=== PATIENT | male | born 1940 | race Caucasian/White ===

== ENCOUNTER 2017-04-12 10:08 | Inpatient (IN) | payer MEDICARE, OTHER ==
[~2017-04-12 10:08] MED LIST: CEFAZOLIN 2 Gram 2 GM/50 ML BAG IVPB ONE; CELECOXIB 100 MG CAPSULE PO ONE; FAMOTIDINE 20MG TABLET PO ONE; MECLIZINE 25 MG TABLET PO ONE; METOCLOPRAMIDE 10 MG TABLET PO ONE; VANCOMYCIN HCL 1,000 MG in DEXTROSE 5 % IN WATER 250 ML IVPB ONE
[2017-04-12 11:13] LABS: ABO GROUP O; ANTIBODY SCREEN NEGATIVE (NEGATIVE); RH TYPE POSITIVE
[2017-04-12] MEDS ORDERED: MAGNESIUM HYDROXIDE 30 ML UDC PO PRN (14:58)
[2017-04-12] MEDS ORDERED: HYDROCODONE/APAP 10/325 TABLET PO PRN (14:58)
[2017-04-12] MEDS ORDERED: AL HYDROX/MAG HYDROX 30ML UD PO PRN (14:58)
[2017-04-12] MEDS ORDERED: ONDANSETRON HCL IV 4 MG/2 ML VIAL IVP PRN (14:58)
[2017-04-12] MEDS ORDERED: KETOROLAC 30 MG/ML VIAL IVP PRN ×2 (14:58)
[2017-04-12] MEDS ORDERED: NALOXONE 0.4 MG/1 ML VIAL IVP PRN (14:58)
[2017-04-12] MEDS ORDERED: BISACODYL 10 MG SUPP RC PRN (14:58)
[2017-04-12] MEDS ORDERED: HYDROMORPHONE HCL 2 MG/ML VIAL IM PRN (14:58)
[2017-04-12] MEDS ORDERED: ACETAMINOPHEN W/ CODEINE 300MG/60MG TABLET PO PRN ×2 (14:58)
[2017-04-12] MEDS ORDERED: ACETAMINOPHEN 325 MG TAB PO PRN (14:58)
[2017-04-12] MEDS ORDERED: DIPHENHYDRAMINE HCL 25 MG CAPSULE PO PRN (14:58)
[2017-04-12] MEDS ORDERED: TRAMADOL HCL 50 MG TABLET PO PRN (14:58)
[2017-04-12] MEDS ORDERED: ZOLPIDEM TARTRATE 5 MG TABLET PO PRN (14:58)
--- NOTE | 2017-04-12 16:07 | Operative Note ---
DATE OF SURGERY: 04/12/17 PREOPERATIVE DIAGNOSIS: END-STAGE ARTHROSIS OF THE LEFT HIP. POSTOPERATIVE DIAGNOSIS: END-STAGE ARTHROSIS OF THE LEFT HIP. PROCEDURE: CEMENTLESS LEFT TOTAL HIP ARTHROPLASTY USING CRUZ-NEPHEW COMPONENTS WITH A SIZE 54 NO-HOLE REFLECTION CUP, A 35 DEGREE OFFSET WITH A 32 MM DIAMETER HIGHLY CROSS-LINKED LINER WITH A SIZE 15 STANDARD OFFSET ECHELON CEMENTLESS STEM WITH A +0, 32 MM DIAMETER COBALT CHROME HEAD. STAFF SURGEON: DR. STONE ANESTHESIA: SPINAL PREPARATION: CHLORAPREP INDIVIDUAL CONSIDERATION: NONE PROCEDURE: The patient was taken to the Operating Room and placed supine on the operating room table. He had successful induction of a spinal anesthetic. He was then placed on her side, left side up, and his left leg and hip were prepped and draped in the usual fashion. The patient had direct posterior approach to the hip. Sharp dissection was carried down through the skin and subcutaneous tissues. Small veins were coagulated with a Bovie. The tensor gluteal fascia was opened along the entire length of the incision and deep retractors were placed. Short external rotators were identified, piriformis fossa and removed and this exposed the posterior capsule. The posterior capsulectomy was performed. The hip was dislocated posteriorly. He had advanced change at the head and some changes in the socket. A femoral neck cut was then made freehand with an oscillating saw, about a fingerbreadth above the lesser troch. A rim capsulectomy was then performed starting with 45 mm reamer to medialize to the medial wall. I reamed the introitus, it was a 53 for a 54 cup. I slightly had to ream to 52. After thorough irrigation, I impacted a size 54 no-hole reflection cup at 20 degrees of forward flexion and 40 degrees of abduction using the extra-articular alignment guide and bony landmarks. There was solid cementless fixation. The center cap screw was placed and the 35-degree offset, 32 mm diameter liner, was then impacted with the offset posterior and inferior. This gave an excellent stable acetabular construct and this was packed off. The proximal femur was delivered into the wound and box cutting osteotome was used to remove proximal metaphyseal bone. Mid stem reaming was done to a size 15. I just started feeling cortex at maybe 13 then a 15 looks like a good proximal fit. I broached a 15, dialed anteversion between 25-30 degrees, and the broach had solid cementless fit. Calcar reamed and then with a standard neck and head, there was excellent stability. This was removed after irrigation and a size 15 standard [place] cementless stem was impacted into place with solid calcar contact and solid cementless fixation. I again irrigated out and completely dried the [place] Taper and impacted a +0, 32 mm diameter [place] Chrome head on the [place] Taper then reduced the hip. I had full anterior stability with extension and external rotation; actually, I had full stability posteriorly and I couldn't actually dislocated it without pulling it out with a hook even. I flexed them to 90-120 degrees internally rotated maximally and he is still stable. After irrigation, hemostasis was obtained with a Bovie. The sciatic nerve was inspected and found to be completely intact. The tensor gluteal fascia was closed with a running #2 quill and just prior to closure, I did place about 30 mL of saline mixed with 1 gram of Tranexamic Acid. He did receive 1 gram of Tranexamic Acid prior to the procedure IV. I finished the fascia closure, the subcutaneous was closed with 0 quill, and the skin was closed with chris. The skin and subcutaneous tissues were infiltrated with 0.75% Marcaine with Epinephrine, 30 mL. The patient tolerated the procedure well. Needle and sponge counts were correct. Estimated blood loss was less than 250 mL and he was taken back to Recovery in good condition. There were no complications. JOB NUMBER: [id number] MTDD
[2017-04-12] MEDS ORDERED: 0.9 % SODIUM CHLORIDE 10 ML VIAL IVP ONE (16:40)
[2017-04-12] MEDS ORDERED: TRANEXAMIC ACID 1,000 MG/10 ML ML IV ONE (16:40)
--- NOTE | 2017-04-12 17:17 | Rehab Evaluation ---
Patient Information - Patient Information Diagnosis: L hip DJD Ordered Treatment: PT Evaluate and Treat Status: Initial Evaluation Surgery: Yes (THR) Date of Surgery: 04/12/17 Past Medical/Surgical Hx: PAST MEDICAL/SURGICAL HISTORY Surgery to Affected Area? No Recent Surgery? Past Surgical History fabiana inguinal hernia; RTC left;; tonsils; colonoscopy PMH - Respiratory Hx Respiratory Disorders Yes Hx Pneumonia Yes PMH - Cardiovascular Hx Cardiovascular Disorders Yes Hx Hypertension Yes Exercise Tolerance Poor Comment: hi chol PMH - Neuro Hx Neurological Disorders No PMH - GI Hx Gastrointestinal Disorders Yes Hx Gastroesophageal Reflux Yes Hx Rectal Bleeding Yes: hemmorhoids PMH - Hx Genitourinary Disorders Yes Hx Prostate Problems Yes: bph PMH - Endocrine Hx Endocrine Disorders Yes Hx Thyroid Disease Yes PMH - Musculoskeletal Hx Musculoskeletal Disorders Yes Hx Arthritis Yes: back; hands PMH - Psych Hx Psychiatric Problems No PMH - Hematology/Oncology Hx Hematology/Oncology No Disorders Premorbid Status: Detail (The patient was independent with all mobility.) Social History: Detail (The patient lives in a single story home with spouse with 1 step at the enterance without a railing. The patienthas a small standing shower on the first floor that is not acessible however the patient's has acquired a tub chair and hand held shower to allow him to take a shower in a first floor bathroom. The other bathroom with tub/shower combo is in basement with 13 concrete steps, which patient's stated is unsafe currently. The patient has a toilet riser seat and a wheeled walker, however the walker is too short. Will vend patient a taller walker.) Precautions: [place], Other (Total hip precautions, WBAT on the L LE.) - Time With Patient Total Time Spent With Patient (Min): 30 Treatment Procedures: Detail (Initial evaluation) Subjective Information - Subjective Information Per Patient (The patient had no complaints of pain, however the patient complained of lightheadness.) Objective Data - Mental Status Patient Orientation: Oriented x3 - ROM Not within normal limits (The patient's R LE AROM is WNL. The patient's L LE hip AROM is within total hip precautions, knee and ankle was WNL.) - Strength/Tone Not within normal limits (The patient's R LE strength is 4+to 5/5, L LE strength was not tested secondary to s/p surgery, however strength is functional secondary to patient is able to lift leg during supine to sit.) - Bed Mobility Independent (Independent with supine to sit transfer.) - Transfers Independent (Independent with sit to stand) - Balance Balance Sitting: Good Balance Standing: Fair (The patient required walker for support. The patient was lightheaded.) - Gait Detail (The patient did not ambulate due to lightheadness. The patient reported he did not feel safe to ambulate. The patient was instructed to ambulate this pm with nursing staff.) Therapy Assessment - Therapy Assessment Detail (The patient was independent with bed mobility and transfers. The patient did not ambulate do to lightheadness. Feel the patient will progress well with mobility tomorrow.) Problem List - Problem List Physical Therapy Problem List: Detail (1) Lightheadness with sitting and standing. 2) Non ambulatory 3) Decreased L LE strength as to be expected following VICENTA surgery) Goals - Goals Physical Therapy Goals: 1) The patient will ambulate independently with assistive device WBAT on the L LE a distance of 100 feet. 2) The patient will ambulate on stairs with supervision for safety. 3) The patient will be independent with all transfers. 4) The patient will be independent with THR HEP. 5) The patient will have good understanding and follow THR precautions. Prognosis - Prognosis Good Plan - Plan Physical Therapy Plan: PT 1-2 times a day for gait and transfer training, instruction in HEP until PT goals are met.
[2017-04-12] MEDS: HYDROCODONE/APAP 10/325 TABLET PO PRN (20:35)
[2017-04-12] MEDS: POTASSIUM CHLORIDE/D5-0.9%NACL 20 MEQ/1,000 ML BAG IV SCH ×2 (20:36→23:36)
[2017-04-12] MEDS: CEFAZOLIN 2 Gram 2 GM/50 ML BAG IVPB SCH (20:37)
[2017-04-12] MEDS: DOCUSATE SODIUM 100 MG CAPSULE PO SCH (21:02)
[2017-04-13] MEDS ORDERED: LIDOCAINE UROJECT 10 ML APPL MM ONE (00:37)
[2017-04-13] MEDS: HYDROCODONE/APAP 10/325 TABLET PO PRN ×2 (04:07→09:33)
[2017-04-13] MEDS: CEFAZOLIN 2 Gram 2 GM/50 ML BAG IVPB SCH ×2 (04:08→12:17)
[2017-04-13 06:57] LABS: HEMATOCRIT 34.7 % (42.0-52.0); HEMOGLOBIN 11.5 gm/dl (14.0-18.0)
[2017-04-13] MEDS ORDERED: PATIENT OWN MED: LEVOTHYROXINE 125 MCG PO SCH (07:00)
[2017-04-13 07:10] LABS: BLOOD UREA NITROGEN 12 mg/dL (8-23); CREATININE 0.7 mg/dL (0.7-1.2); EST GLOMERULAR FILTRATION RATE > 60 mL/min; GLUCOSE,RANDOM 110 mg/dL (74-109)
[2017-04-13] MEDS: DOCUSATE SODIUM 100 MG CAPSULE PO SCH (09:45)
[2017-04-13] MEDS ORDERED: PATIENT OWN MED: ATORVASTATIN 10 MG PO SCH (10:00)
[2017-04-13] MEDS ORDERED: RIVAROXABAN 10 MG TABLET PO SCH (10:00)
[2017-04-13] MEDS ORDERED: FERROUS SULFATE 325 MG TAB PO SCH (10:00)
[2017-04-13] MEDS ORDERED: RAPAFLO 8 MG PO SCH (10:00)
[2017-04-13] MEDS ORDERED: PATIENT OWN MED: AMLODIPINE 10 MG PO SCH (10:00)
--- NOTE | 2017-04-13 11:21 | Physical Therapy Tx Note ---
Physical Therapy Tx Note - Treatment Note Tolerated: Good Total Time Spent With Patient: 25 Physical Therapy Tx Note: Detail (The patient was sleeping when PT arrived. The patient was more painful this am level 8 pain at the highest. The patient was independent with supine to and from sit transfer, movements were slow. Sit to and from stand transfer was independent. The patient ambulated with wheeled walker a distance of 60 feet x 1 WBAT on the L LE. The patient's HEP was reviewed including: heel slides, ankle pumps, gluteal sets, quad sets, hamstring sets,hip abduction supine. The patient did not recall his hip precautions . The patient's was present for exercises and states she has been reminding him of his hip precautions. Patient had more difficulty this am with bed mobility due to pain complaints. PT will see patient this pm for ambulation on stairs if tolerated.) Physical Therapy Problem List: Detail (1) Lightheadness with sitting and standing. 2) Non ambulatory 3) Decreased L LE strength as to be expected following VICENTA surgery) Physical Therapy Goals: 1) The patient will ambulate independently with assistive device WBAT on the L LE a distance of 100 feet. 2) The patient will ambulate on stairs with supervision for safety. 3) The patient will be independent with all transfers. 4) The patient will be independent with THR HEP. 5) The patient will have good understanding and follow THR precautions. Physical Therapy Plan: PT 1-2 times a day for gait and transfer training, instruction in HEP until PT goals are met.
--- NOTE | 2017-04-13 12:54 | Rehab Evaluation ---
Patient Information - Patient Information Diagnosis: L hip DJD Ordered Treatment: OT Evaluate and Treat Status: Initial Evaluation Surgery: Yes (VICENTA) Date of Surgery: 04/12/17 Past Medical/Surgical Hx: PAST MEDICAL/SURGICAL HISTORY Surgery to Affected Area? No Recent Surgery? Past Surgical History omer inguinal hernia; RTC left;; tonsils; colonoscopy PMH - Respiratory Hx Respiratory Disorders Yes Hx Pneumonia Yes PMH - Cardiovascular Hx Cardiovascular Disorders Yes Hx Hypertension Yes Exercise Tolerance Poor Comment: hi chol PMH - Neuro Hx Neurological Disorders No PMH - GI Hx Gastrointestinal Disorders Yes Hx Gastroesophageal Reflux Yes Hx Rectal Bleeding Yes: hemmorhoids PMH - Hx Genitourinary Disorders Yes Hx Prostate Problems Yes: bph PMH - Endocrine Hx Endocrine Disorders Yes Hx Thyroid Disease Yes PMH - Musculoskeletal Hx Musculoskeletal Disorders Yes Hx Arthritis Yes: back; hands PMH - Psych Hx Psychiatric Problems No PMH - Hematology/Oncology Hx Hematology/Oncology No Disorders Premorbid Status: Detail (The patient lives with in a 1 story house with basement (he will be staying on the first floor). He has 1 step, no railing at the entrance. He has a tub/shower combination with hand held shower and they are renting an extended tub bench. His is responsible for home mgmt, meal prep and laundry. He has a 2 wheeled walker, raised toilet seat (no grab bar), and total hip kit including household personal assistant, sock aid, dressing stick, shoe horn and bath sponge.) Social History: Detail (Supportive spouse.) Precautions: [place], Other (Total hip precautions, WBAT on the L LE.) - Time With Patient Total Time Spent With Patient (Min): 50 Treatment Procedures: Detail (OT eval, low complexity) Subjective Information - Subjective Information Per Patient, Other (per spouse) Objective Data - Pain Pain Present: Yes (12/02) - Mental Status Patient Orientation: Oriented x3 - Visual Perception Appears within normal limits for therapeutic activities - ROM Within normal limits (Omer UE AROM WNL) - Strength/Tone Within normal limits (Omer UE strength WNL) - Coordination Appears within normal limits for therapeutic activities - Transfers Independent (Ind with sit to stand from commode and EOB.) - Balance Balance Sitting: Good Balance Standing: Fair - Sensation Intact - Gait Detail (Pt ambulating in room with 2 wheeled walker and SBA) - ADL's/IADL's Detail (Pt able to demonstrate total body dressing with use of household personal assistant and sock aid, he required mod verbal cuing to recall total hip precautions throughout dressing activity. He was Ind with toileting. was present during eval and she will be assisting him as needed.) Therapy Assessment - Therapy Assessment Detail (Pt able to demonstrate Ind with total body dressing with use of adaptive equipment, will be available to assist as needed.) Problem List - Problem List Physical Therapy Problem List: Detail (1) Lightheadness with sitting and standing. 2) Non ambulatory 3) Decreased L LE strength as to be expected following VICENTA surgery) Occupational Therapy Problem List: Detail (No current OT problems identified.) Goals - Goals Physical Therapy Goals: 1) The patient will ambulate independently with assistive device WBAT on the L LE a distance of 100 feet. 2) The patient will ambulate on stairs with supervision for safety. 3) The patient will be independent with all transfers. 4) The patient will be independent with THR HEP. 5) The patient will have good understanding and follow THR precautions. Occupational Therapy Goals: No current OT goals identified. Prognosis - Prognosis Good Plan - Plan Physical Therapy Plan: PT 1-2 times a day for gait and transfer training, instruction in HEP until PT goals are met. Occupational Therapy Plan: No further IP OT recommended at this time. Thank you for this referral.
[2017-04-13] MEDS ORDERED: TRANEXAMIC ACID 1,000 MG/10 ML ML IV ONE (12:55)
[2017-04-13] MEDS ORDERED: BUPIVACAINE 0.75% W/EPI MPF 30ML VIAL IVP ONE (12:55)
[2017-04-13] MEDS ORDERED: LIDOCAINE 2% MDV (20MG/ML) 20ML VIAL IV ONE (15:36)
[2017-04-13] MEDS ORDERED: METOCLOPRAMIDE HCL 10 MG/2 ML VIAL IVP ONE (15:36)
[2017-04-13] MEDS ORDERED: PROPOFOL 10 MG/ML VIAL IV ONE (15:36)
[2017-04-13] MEDS ORDERED: MIDAZOLAM HCL 2MG/2ML VIAL IV ONE (15:36)
[2017-04-13] MEDS ORDERED: HYDROMORPHONE HCL 2 MG/ML VIAL IV ONE (15:36)
[2017-04-13] MEDS ORDERED: EPHEDRINE SULFATE 50 MG/ML ML IV ONE (15:36)
[2017-04-13] MEDS ORDERED: GLYCOPYRROLATE 0.2 MG/ML ML IV ONE (15:36)
[2017-04-13] MEDS ORDERED: FENTANYL PF 100MCG/2ML VIAL IV ONE (15:36)
[2017-04-13] MEDS ORDERED: ONDANSETRON HCL IV 4 MG/2 ML VIAL IVP ONE (15:36)
--- NOTE | 2017-04-13 15:47 | Physical Therapy Tx Note ---
Physical Therapy Tx Note - Treatment Note Tolerated: Good Total Time Spent With Patient: 30 Physical Therapy Tx Note: Detail (Patient states no complaints of pain in left hip. Patient transferred supine to sit independently. Patient transferred sit to and from stand independently. Patient ambulated 40 feet with wheeled walker SBA x1. Patient ascended and descended 3 steps CGA x1. Patient transferred sit to and from stand independently. Patient ambulated 13 feet with wheeled walker SBA x1. Patient performed the following exercises seated on edge of bed x10 reps each: hip flexion, hip abduction, isometric hip adduction, glut squeezes, heel raises, toe raises, heel slides, LAQ, and hamstring sets. Patient tolerated treatment well. Patient displays good understanding of HEP and stair climbing. Reviewed hip precautions with patient and patients . Patient has passed all inpatient PT goals. Patient discharged from inpatient PT at this time. Patient was left seated on edge of bed with call light within reach.) Physical Therapy Problem List: Detail (1) Lightheadness with sitting and standing. 2) Non ambulatory 3) Decreased L LE strength as to be expected following VICENTA surgery) Physical Therapy Goals: 1) The patient will ambulate independently with assistive device WBAT on the L LE a distance of 100 feet. 2) The patient will ambulate on stairs with supervision for safety. 3) The patient will be independent with all transfers. 4) The patient will be independent with THR HEP. 5) The patient will have good understanding and follow THR precautions. Prognosis: Good Physical Therapy Plan: Patient passed all inpatient PT goals. Patient is discharged from inpatient PT at this time.
--- NOTE | 2017-04-15 06:59 | Discharge Summary ---
DATE OF ADMISSION: 04/12/2017. DATE OF DISCHARGE: 04/13/2017. DATE OF SURGERY: 04/12/2017. HISTORY: Mr. Ramon is a delightful 77-year-old male who presents with endstage arthrosis of his left hip. He was admitted for a left total hip arthroplasty. Postoperatively he did well. His hospital course was unremarkable. PLAN: The plan is to discharge him home in the care of his family. Home physical therapy and visiting nurse has been arranged. He will be given [place] for pain and Xarelto for deep venous thrombosis prophylaxis. He will follow up in my office in four weeks. The visiting nurse will remove his sutures in two weeks. LABORATORY DATA: His discharge hemoglobin was 11.5, and he did not require transfusion. FINAL DIAGNOSIS AND PRIMARY DIAGNOSIS: Endstage arthrosis of the left hip. SECONDARY DIAGNOSIS: Operative blood loss anemia. OPERATIONS AND PROCEDURES: Cementless left total hip arthroplasty. DISCHARGE CONDITION: Good. JOB NUMBER: [id number] MTDD
== END 2017-04-13 16:55 | disposition home health service (06) | DRG 470 ==
LOC: MEDSURG 10:08
PROVIDERS: ADMIT Orthopaedic Surgery; ATTEND Orthopaedic Surgery
PROC: 0SRB06A Replacement of Left Hip Joint with Oxidized Zirconium on Polyethylene Synthetic Substitute, Uncemented, Open Approach (ICD-10-PCS; principal; 2017-04-12 12:30)
DX: M16.12 Unilateral primary osteoarthritis, left hip (principal); E03.9 Hypothyroidism, unspecified; I10 Essential (primary) hypertension; E78.00 Pure hypercholesterolemia, unspecified; Z87.891 Personal history of nicotine dependence
CPT/HCPCS: 80048; 85014; 85018; 86850; 86900; 86901; 97110; 97165; 97530; J1885; J2405; J2765; J3480; J3490; J7060